=== PATIENT | male | born 1955 | race Caucasian/White ===

== ENCOUNTER → 2020-10-17 | Outpatient (CLI) | payer BC | LOC: SJCVCIMAG 08:50 | PROVIDERS: ATTEND Internal Medicine | DX: I08.8 Other rheumatic multiple valve diseases (principal); R00.1 Bradycardia, unspecified; I25.10 Atherosclerotic heart disease of native coronary artery without angina pectoris; I71.4 Abdominal aortic aneurysm, without rupture; I10 Essential (primary) hypertension; E78.5 Hyperlipidemia, unspecified; Z79.82 Long term (current) use of aspirin; Z79.899 Other long term (current) drug therapy; Z87.891 Personal history of nicotine dependence ==

== ENCOUNTER 2021-12-10 07:26 | Emergency (ER) | payer BC ==
[~2021-12-10] VITALS: Ht 172.7 cm; Wt 88.5 kg
--- NOTE | ~2021-12-10 | EMS ---
[facility] [address] [place] [address] EMS Patient Care Report Name: JEANETTE DIAZ Room #: PRE M.R.#: [id number] Admission: Attend Phys: Discharge: Date of : 55 Report #: [id number] THIS REPORT FOR: //name// Report Transmitted: 12/10/2021 06:56 EMS Care Summary [facility] MED-ACT Incident [id number] @ 12/10/2021 06:47 Incident Location [address] [place] [address] Patient JEANETTE DIAZ Male, 66 Years 1955 Patient Address [address] [place] [address] Patient History Hypertension (HTN),Hyperlipidemia,Cardiac - Stent, Patient Allergies No known allergies, Patient Medications Hydrochlorothiazide (Hctz), ASA, Chief Complaint chest pressure Disposition Transported No Lights/[place] Dispatch Reason Chest Pain (Non-Traumatic) Transported To [facility] Narrative The pt said he woke up around 0230 this AM and wasn't feeling good. He reported chest pressure in the R side of his chest. He said he got up and went to the couch and noted the pain turned 'sharp' when he moved around. He said the pain hadn't gone away when his family got up, so they called 911. The pt [facility] [address] [place] [address] EMS Patient Care Report Name: JEANETTE DIAZ Room #: PRE [facility].#: [id number] Admission: Attend Phys: Discharge: Date of : 55 Report #: [id number] said he had a cardiac event in 2008 and received 2 stents. He said the pain during that time was in his L shoulder. The pt denied shortness of breath, diarrhea, nausea, vomiting, diaphoresis or recent fever or cough. The pt denies smoking. He said he has been vaccinated for Covid and flu. The pt said he has been medication compliant. He denied feeling poorly yesterday. The pt said he had a stress test a few months ago and it was normal. 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 The pt was sitting on the couch. D was with the pt. HPI, PMH, Exam, vitals and 12 lead from [facility]. The pt walked to the cot- unit. [address] elevation or depression noted. IV established. En route: Vitals. Biocom to [place]. No orders req'd/rec'd. The pt rested comfortably during transport. He was moved to ER#3. Care released to staff. Initial Vitals @PTAP: 70,SpO2: 98, @07:06P: 62,SpO2: 100,NV Suspected: false @PTAP: 60,R: 16,BP: 184/124,Pain: 2/10,GCS: 15,SpO2: 95,Revised Trauma: 12, @07:06P: 65,R: 16,BP: 181/102,Pain: 2/10,GCS: 15,Temp: 98.8F,Glucose: 125,SpO2: 98,Revised Trauma: 12, @07:16P: 67,R: 16,BP: 169/88,Pain: 2/10,GCS: 15,SpO2: 98,Revised Trauma: 12,NV Suspected: false @07:21P: 63,R: 16,BP: 167/118,Pain: 2/10,GCS: 15,SpO2: 100,Revised Trauma: 12, Impression Chest Pain / Discomfort Procedures @KTU92-Itus ECG Response: UnchangedSucceeded @07:06 12-Lead ECG Response: UnchangedSucceeded @07:06 IV Therapy - Saline Lock 10cc (20 ga) Site: Antecubital-Right Response: UnchangedSucceeded @PTAAspirin - 324 Milligrams (mg) - Oral Response: Unchanged @07:07 Surgical Mask on Patient Response: Unchanged Timeline DOOR LINER HELPER,12-Lead ECG,Response: UnchangedSucceeded, DOOR LINER HELPER,Aspirin - 324 Milligrams (mg) - Oral,Response: Unchanged DOOR LINER HELPER,BP: / M,PULSE: 70,RR: R,SPO2: 98 Ox,ETCO2: ,BG: ,PAIN: ,GCS: , DOOR LINER HELPER,BP: 184/124 M,PULSE: 60,RR: 16 R,SPO2: 95 Ox,ETCO2: ,BG: ,PAIN: 2,GCS: 15, 06:46,Call Received 06:46,Psap Call 06:47,Dispatched 06:49,En Route [facility] [address] [place] [address] EMS Patient Care Report Name: JEANETTE DIAZ Room #: PRE M.R.#: [id number] Admission: Attend Phys: Discharge: Date of : 55 Report #: [id number] 06:55,On Scene 06:56,At Patient 07:06,IV Therapy - Saline Lock 10cc 20 ga Site: Antecubital-Right,Response: UnchangedSucceeded, 07:06,12-Lead ECG,Response: UnchangedSucceeded, 07:06,BP: / M,PULSE: 62,RR: R,SPO2: 100 Ox,ETCO2: ,BG: ,PAIN: ,GCS: , 07:06,BP: 181/102 M,PULSE: 65,RR: 16 R,SPO2: 98 Ox,ETCO2: ,B,PAIN: 2,GCS: 15, 07:07,Surgical Mask on Patient,Response: Unchanged 07:07,Depart Scene 07:16,BP: 169/88 M,PULSE: 67,RR: 16 R,SPO2: 98 Ox,ETCO2: ,BG: ,PAIN: 2,GCS: 15, 07:21,BP: 167/118 M,PULSE: 63,RR: 16 R,SPO2: 100 Ox,ETCO2: ,BG: ,PAIN: 2,GCS: 15, 07:23,At Destination 07:38,Call Closed Disclaimer v1.1 Copyright 2021 [employer] This EMS Care Summary contains data elements from the applicable legal record (which may be displayed differently). It is designed to provide pertinent information for the following purposes: continuity of care, clinical quality, and state data reporting. The complete legal record is available to ED staff and administrators of the receiving hospital in [employer] Patient Tracker. All data is provided "as is."
[2021-12-10] MEDS ORDERED: VASCEPA1 GM PO (07:34)
[2021-12-10] MEDS ORDERED: ROSUVASTATIN CA20 MG PO (07:34)
[2021-12-10] MEDS ORDERED: ASA81BEC PO (07:35)
[2021-12-10] MEDS ORDERED: BYSTOLIC 5 MG5 M1 PO (07:35)
[2021-12-10] MEDS ORDERED: HYDROCHLOROTHIA25 M1 PO (07:35)
[2021-12-10] MEDS ORDERED: MULTIVITAMIN1 EACH PO (07:35)
[2021-12-10 07:52] LABS: ABSOLUTE NEUTROPHILS 2.8 thou/uL (1.4-8.2); EOSINOPHILS 3.7 % (0.0-3.0); HEMATOCRIT 48.1 % (42.0-52.0); HEMOGLOBIN 16.3 gm/dL (14.0-18.0); LYMPHOCYTES 30.9 % (24.0-44.0); MCH 29.3 pg (26.0-34.0); MCHC 33.8 g/dL (28.0-37.0); MCV 86.5 fL (80.0-100.0); MONOCYTES 11.8 % (1.0-8.0); PLATELET COUNT 224 thou/uL (150-400); POLYS 52.6 % (36.0-66.0); RBC 5.57 mil/uL (4.50-6.00); RDW 13.2 % (10.5-14.5); WBC 5.3 thou/uL (4.0-11.0)
[2021-12-10 07:55] LABS: CALCIUM 9.8 mg/dL (8.5-10.1); CREATININE 0.8 mg/dL (0.7-1.3); POTASSIUM 4.2 mmol/L (3.5-5.1)
[2021-12-10 08:08] LABS: ALBUMIN 4.4 g/dL (3.4-5.0); TOTAL BILIRUBIN 0.7 mg/dL (0.2-1.0); TOTAL PROTEIN 7.6 g/dL (6.4-8.2)
--- NOTE | 2021-12-10 10:03 | EKG ---
[place] [address] [facility] [place] [address] ELECTROCARDIOGRAM REPORT Name: JEANETTE DIAZ Room #: [facility] [id number] Admission: 12/10/21 Attend Phys: Discharge: Date of : 55 Report #: [id number] [facility] ED Test Date: 2021-12-10 Test Time: 07:28:53 Pat Name: JEANETTE DIAZ Department: Room: Gender: M Coding Specialist: : 1955 Requested By: Bijan Mckeon Order Number: [id number] MD: Maximilian Benitez Measurements Intervals [place] Rate: 64 P: 39 DC: 185 QRS: -2 QRSD: 119 T: -4 QT: 420 QTc: 434 Interpretive Statements Sinus rhythm Inferior infarct, old No previous ECG available for comparison Electronically Signed On 12-10-2021 7:55:36 [employer] by Maximilian Benitez [email or web address] <ELECTRONICALLY SIGNED> By: Maximilian eBnitez MD, [facility] 12/10/21 0755 0728 0728 Maximilian Benitez MD, FACC /EPI
[2021-12-10 11:23] VITALS: BP 121/66
== END 2021-12-10 11:23 | disposition home or self-care (01) ==
LOC: ER 07:26
PROVIDERS: Emergency Medicine
DX: R07.89 Other chest pain (principal); E78.5 Hyperlipidemia, unspecified; I10 Essential (primary) hypertension; Z79.899 Other long term (current) drug therapy